=== PATIENT | female | born 1995 | race Caucasian/White ===

== ENCOUNTER 2024-03-21 21:50 | Emergency (ER) | payer OTHER, SELFPAY ==
--- NOTE | ~2024-03-21 | XR_ITS ---
EXAMINATION: XR KNEE, LEFT CLINICAL INFORMATION: Left knee pain, injury COMPARISON: None available. TECHNIQUE: Four views of the left knee. FINDINGS: No fracture or joint effusion. Alignment is anatomic. Joint spaces are maintained. No abnormal soft tissue calcification. XR/XR knee LT 4V IMPRESSION: Normal left knee. Electronically signed by: Tang Murphy MD 03/21/2024 10:32 PM EDT
[2024-03-21 22:04] VITALS: BP 145/56; PULSE 96; RESP 18; TEMP 36.7; O2SAT 96; BMI 30.8
--- NOTE | 2024-03-22 | ED_ITS ---
HPI - General Adult General Chief complaint: Extremity Injury, Lower Stated complaint: jumped and hurt knee, heard a pop, swelling Time Seen by Provider: 03/21/24 23:53 Source: patient and RN notes reviewed Mode of arrival: EMS Limitations: no limitations History of Present Illness ED Provider: Vamsi HPI narrative: 29-year-old female presents for evaluation of left knee pain. Patient was at a local show. She reports jumping in the air and immediately feeling a pop in the left outside of the knee. The patient had pain when landing She reports that she is unable to walk without pain to the left ankle. Did not fall to the ground, hit her head or lose consciousness Her pain is 8/10 Related Data Allergies Allergy/AdvReac Type Severity Reaction Status Date / Time cat dander [CAT] Allergy Unknown UNKNOWN Verified 03/21/24 22:04 dog dander [DOG] Allergy Unknown UNKNOWN Verified 03/21/24 22:04 Review of Systems Constitutional: Constitutional: Denies body ache(s), Denies chills, Denies fever(s) and Denies frequent falls Musculoskeletal: Musculoskeletal: Reports arthralgias, Denies joint swelling and Reports limited range of motion Neurologic: Denies frequent falls Physical Exam ED Vital Signs: Vital Signs - 24 hr 03/21/24 22:04 03/22/24 00:21 Temperature 98.1 F 97.2 F Pulse Rate 96 72 Respiratory Rate 18 16 Blood Pressure 145/56 H 126/74 Pulse Oximetry 96 97 Oxygen Delivery Method Room Air Room Air BMI result Body Mass Index 30.8 Const General: healthy appearing, comfortable, no acute distress, alert and awake Nutritional Appearance: well nourished Orientation/consciousness: patient oriented x3 HENMT Head: Yes normocephalic and Yes atraumatic Eyes Eyelids: Yes eyelids normal Conjunctivae: conjunctivae normal Sclerae: sclerae normal Corneas: corneas normal Pupils: Equal, round and reactive pupils present EOM: EOMs intact bilaterally Neck Neck: Yes full ROM Resp Effort & Inspection: normal respiratory effort, able to speak in complete sentences and not labored Skin General skin exam: elasticity normal Neuro General: patient oriented x3 Cranial nerves: Yes Equal, round and reactive pupils present and Yes Bilaterally intact EOM present Cognition (Neuro): normal cognition Extrem Other: There is no significant edema to the left knee. The patient is minimally tender to palpation in the left lateral knee. She has full range of motion with flexion-extension of the left knee. Negative anterior drawer testing of the left knee. Negative valgus/varus strain of the left knee. There is no calf tenderness or Achilles tenderness. Medications Administered Discontinued Medications Generic Name Dose Route Start Last Admin Trade Name Valente PRN Reason Stop Dose Admin Ibuprofen 600 mg 03/21/24 23:59 03/22/24 00:09 Ibuprofen 600 Mg Tablet PO 03/22/24 00:00 600 mg ONCE ONE Administration Medical Decision Making Medical Decision Making [facility] Narrative: 29-year-old female presents for evaluation of left knee pain after jumping. The physical exam is quite reassuring, the patient is able to flex and extend without difficulty. This rules out patellar tendon rupture or quadriceps tendon injury. There is no laxity with anterior drawer testing, I have a low suspicion for ACL injury. The patient likely has a simple left knee sprain. Will treat with symptomatic care only Differential Diagnosis Differential Diagnoses: The differential diagnosis associated with the presen tation includes Left knee pain Meniscus injury Ligamentous injury Patellar tendon injury Independent Interpretation I performed an independent interpretation of an: Plain X-Ray (Agree with Radiology interpretation, no acute fracture) Radiology Impression Discussion of test interpretation with radiology: I have reviewed the radiologist's reading. Radiologist Impression: FINDINGS: No fracture or joint effusion. Alignment is anatomic. Joint spaces are maintained. No abnormal soft tissue calcification. XR/XR knee LT 4V IMPRESSION: Normal left knee. Discharge Plan Discharge Clinical Impression: Acute knee pain Patient Disposition: Home, Self-Care Instructions: Knee Pain (ED) Additional Instructions: Your x-ray was negative for fracture, any do not have any fluid in your knee. Your physical exam is reassuring, I have a low suspicion for a ligament injury Your pain is most likely a simple knee sprain Use ibuprofen and Tylenol for pain. Elevate the leg above your heart while resting Follow-up with your primary doctor Stand Alone Forms: Work/School Release Print Language: Latvian
[2024-03-22] MEDS: Ibuprofen 600 MG TABLET PO (00:09)
[2024-03-22 00:21] VITALS: BP 126/74; PULSE 72; RESP 16; TEMP 36.2; O2SAT 97
[2024-03-22 00:41] VITALS: BP 126/74; PULSE 72; RESP 16; TEMP 36.2; O2SAT 97
== END 2024-03-22 00:41 | disposition home or self-care (01) ==
PROVIDERS: Emergency Provider Emergency Medicine
DX: M25.562 Pain in left knee (principal)
CPT/HCPCS: 73564; 99283; 99284